=== PATIENT | female | born 1955 | race Caucasian/White ===

== ENCOUNTER 2023-07-24 08:17 | Day surgery (SDC) | payer MEDICARE ==
[~2023-07-24] VITALS: Ht 157.5 cm; Wt 113.1 kg
[~2023-07-24 08:17] MED LIST: ASPI81TA86 PO; ATOR40TA75 PO; CEFUROXIME 1MG/0.1ML INTRACAMERAL INJ As Ordered ONE; CELE0.09 PO; CYCLOPENTOLATE 1% OPHTH SOLN 2ML BTL OD SCH; CYMB60CA4 PO; ECOT81TA5 PO; EQLTAB93 PO; FERR325T3 PO; GLIP-163 PO; LANTINJ4 SC; LEVO100T5 PO; LIDOCAINE 1% SDV 5ML VIAL As Ordered ONE; LOSA-530 PO; METO50TA7 PO; NEXI40CA PO; OFLOXACIN 0.3 % (OCUFLOX) OPTH SOL 5ML OD SCH; OMEP40CA5 PO; PANT40TA29 PO; PHENYLEPHRINE 2.5% OPHTH SOL 2ML OD SCH; PRAD150C6 PO; PROPARACAINE 0.5% OPHTH SOL 15ML OD ONE; SYNT175T2 PO; TAB-TAB2 PO; TROPICAMIDE 1% OPHTH SOLN 15ML OD SCH; VITMTA PO; ZYRT10CA PO
[2023-07-24] MEDS ORDERED: MIDAZOLAM INJ 2MG/2ML VIAL As Ordered ONE (09:05)
[2023-07-24 11:30] VITALS: BP 139/85; TEMP 98.5; O2SAT 100
== END 2023-07-24 14:50 | disposition home or self-care (01) ==
LOC: M SDC 08:17
PROVIDERS: ATTEND Ophthalmology
DX: H25.11 Age-related nuclear cataract, right eye (principal); I48.91 Unspecified atrial fibrillation; I10 Essential (primary) hypertension; E78.5 Hyperlipidemia, unspecified; E11.9 Type 2 diabetes mellitus without complications; E03.9 Hypothyroidism, unspecified; Z79.899 Other long term (current) drug therapy; Z79.4 Long term (current) use of insulin; K21.9 Gastro-esophageal reflux disease without esophagitis; F32.A Depression, unspecified; G47.33 Obstructive sleep apnea (adult) (pediatric)
CPT/HCPCS: 66984; J0697; J2250; V2632

== ENCOUNTER 2023-08-14 06:53 | Day surgery (SDC) | payer MEDICARE ==
[~2023-08-14] VITALS: Ht 157.5 cm; Wt 112.9 kg
[~2023-08-14 06:53] MED LIST changes: +BSS IRR 500ML/OMIDRIA 4ML IRR BAG (OR ONLY) As Ordered ONE; -CYCLOPENTOLATE 1% OPHTH SOLN 2ML BTL OD SCH; +CYCLOPENTOLATE 1% OPHTH SOLN 2ML BTL OS SCH; -OFLOXACIN 0.3 % (OCUFLOX) OPTH SOL 5ML OD SCH; +OFLOXACIN 0.3 % (OCUFLOX) OPTH SOL 5ML OS SCH; -PHENYLEPHRINE 2.5% OPHTH SOL 2ML OD SCH; +PHENYLEPHRINE 2.5% OPHTH SOL 2ML OS SCH; -PROPARACAINE 0.5% OPHTH SOL 15ML OD ONE; +PROPARACAINE 0.5% OPHTH SOL 15ML OS ONE; -TROPICAMIDE 1% OPHTH SOLN 15ML OD SCH; +TROPICAMIDE 1% OPHTH SOLN 15ML OS SCH
[2023-08-14] MEDS ORDERED: GLUCOSE 4GM CHEW TABLET PO PRN (07:35)
[2023-08-14] MEDS ORDERED: INSULIN LISPRO (NovoLOG) PER UNIT SC PRN (07:35)
[2023-08-14] MEDS ORDERED: DEXTROSE 50% 50ML SYRINGE IV PRN (07:35)
[2023-08-14] MEDS ORDERED: GLUCAGON INJ 1MG VIAL SC PRN (07:35)
[2023-08-14] MEDS ORDERED: MIDAZOLAM INJ 2MG/2ML VIAL As Ordered ONE (07:39)
[2023-08-14] MEDS ORDERED: fentaNYL 100 MCG/2 ML INJECTION As Ordered ONE (07:39)
[2023-08-14 09:15] VITALS: BP 152/86; TEMP 97.9; O2SAT 98
== END 2023-08-14 12:30 | disposition home or self-care (01) ==
LOC: M SDC 06:53
PROVIDERS: ATTEND Ophthalmology
DX: H25.12 Age-related nuclear cataract, left eye (principal); I48.91 Unspecified atrial fibrillation; I10 Essential (primary) hypertension; E11.9 Type 2 diabetes mellitus without complications; E78.5 Hyperlipidemia, unspecified; E03.9 Hypothyroidism, unspecified; K21.9 Gastro-esophageal reflux disease without esophagitis; Z79.899 Other long term (current) drug therapy; Z79.4 Long term (current) use of insulin; F32.A Depression, unspecified
CPT/HCPCS: 66984; J0697; J1097; J1815; J2250; J3010; V2632

== ENCOUNTER → 2023-11-23 | Outpatient (CLI) | payer MEDICARE, MEDICAID ==
[~2023-11-23] MED LIST changes: -BSS IRR 500ML/OMIDRIA 4ML IRR BAG (OR ONLY) As Ordered ONE; -CEFUROXIME 1MG/0.1ML INTRACAMERAL INJ As Ordered ONE; -CYCLOPENTOLATE 1% OPHTH SOLN 2ML BTL OS SCH; +ELIQ2.5T PO; +ELIQ5TAB PO; +HUMA100I5 INJ; +LEVO112T2 PO; -LIDOCAINE 1% SDV 5ML VIAL As Ordered ONE; +MEGE40TA3 PO; +METO1TAB7 PO; +NAPR220C24 PO; -OFLOXACIN 0.3 % (OCUFLOX) OPTH SOL 5ML OS SCH; -PHENYLEPHRINE 2.5% OPHTH SOL 2ML OS SCH; -PROPARACAINE 0.5% OPHTH SOL 15ML OS ONE; -TROPICAMIDE 1% OPHTH SOLN 15ML OS SCH
== END ==
LOC: M ONCR 10:58
PROVIDERS: ATTEND General Practice
DX: C54.1 Malignant neoplasm of endometrium (principal); E66.01 Morbid (severe) obesity due to excess calories; Z71.2 Person consulting for explanation of examination or test findings; Z79.01 Long term (current) use of anticoagulants; Z79.4 Long term (current) use of insulin; Z79.890 Hormone replacement therapy; Z79.899 Other long term (current) drug therapy

== ENCOUNTER → 2024-10-06 | Outpatient (REF) ==
[~2024-10-06] MED LIST changes: +TRAM50TA2 PO
== END ==
LOC: M LABCFH 09:34
DX: Z11.2 Encounter for screening for other bacterial diseases (principal)